=== PATIENT | female | born 1945 | race Caucasian/White ===

== ENCOUNTER → 2024-09-14 | Outpatient (CLI) | payer MEDICARE ==
[2024-09-14 10:27] VITALS: RESP 16
--- NOTE | 2024-09-14 10:49 | P.GSCN ---
History of Present Illness Consult date: 09/14/24 Reason for Consult: Invasive ductal carcinoma right breast Requesting physician: Chris Chow History of present illness: Julia is a 78-year-old female seen in consultation for Dr. Walker regarding a biopsy-proven invasive ductal carcinoma of the right breast at 10:00. She underwent a bilateral screening mammogram on 07-29-2024. This revealed calcifications in both breast. There was asymmetry seen in the cc view only in the right breast located 5 cm from the nipple. This was considered a BI-RADS 0 and right breast additional studies were recommended. A right breast ultrasound and diagnostic mammogram were performed on 08-10-2024. The diagnostic mammogram revealed an area of architectural distortion measuring 3.5 cm in the cc view only. U;traspund was done of this area which revealed the lesion at 9:00 in the right breast which was 0.3 x 0.3 cm in addition to a 1.3 x 1 cm hypoechoic mass and a second lesion in the right breast at 10:00 3 cm from the nipple which revealed a 1 x 1.1 cm ill-defined mass. 2 site biopsy of the right breast was recommended. She underwent a right breast biopsy at the 10:00 area which revealed an invasive ductal carcinoma and at the 9:00 area which revealed benign breast parenchyma with stromal fibrosis. The 10:00 was ER/IN positive HER2 negative grade 1. She did not feel anything in her breast prior to the mammogram this was a routine study. She has had a benign left breast biopsy done in the past. He is not complaining of any nipple discharge or skin changes. Patient had genetic testing Uses norco TID for back pain She recently told she had some cardiac disease scheduled for a cath/stint tomorrow She has not had any recent trauma or infection in the breast. Caffeine: 1 cup/day nicotine: none chocolate: none BCP: 3 years hormones: bioidentical > 10 years; pellet in now most recent place 1 month ago Family History: daughter: bilateral mastectomy in 30's did not have genetic testing brother: acute leukemia, bladder cancer father: lung cancer paternal aunt: colon cancer Hormonal History: menarche: 15 , breast fed: no, age at first 20 menopause: hysterectomy in her 30's left ovaries and then removed in her 40's no cancer Surgical History: shoulder surgery knee surgery hysterectomy oophrectomy bilat carpel tunnel spinal surgery cervical spine surgery (sees oain managment and has rhizomes) Medical History: cardiac disease situs inversus cervical spine disease lower back pain headaches nausea frequent mitral valve prolapse Social History: nicotine: none alcohol: none drugs: norco for back pain, takes it TID Review of Systems - Constitutional Reports sweats - EENT EENT Comment(s): bilateral cataract surgery Eyes: bilateral blurred vision, bilateral pain Ears: deny: decreased hearing, tinnitus Ears, nose, mouth and throat: Reports dysphagia - Breasts bilateral: as per HPI - Cardiovascular Reports as per HPI - Respiratory Reports cough - Gastrointestinal Reports as per HPI, Reports constipation - Genitourinary Genitourinary Comment(s): bladder suspension Genitourinary: Reports as per HPI Menstruation: Reports post hysterectomy - Musculoskeletal Reports as per HPI - Integumentary Reports pruritus, Reports rash - Neurological Reports headaches, Denies syncope - Psychiatric Reports anxiety, Reports depression - Endocrine Reports fatigue - Hematologic/Lymphatic Reports as per HPI - Allergic/Immunologic Reports as per HPI Surgical - Exam - General moderate distress - Eyes normal ocular movement - Neck trachea midline - Respiratory normal respiratory effort, clear to auscultation - Cardiovascular Rhythm: regular Heart Sounds: normal: S1, S2 - Abdomen Abdomen: soft, non tender, no guarding, no rigid, no rebound - Integumentary normal turgor - Musculoskeletal normal gait - Psychiatric oriented to time, oriented to person, oriented to place, speech is normal, memory intact Breast Exam: bra 38C inspection: Bilateral grade 3 ptosis Palpation: Right breast: Multi positional exam well-healed area from recent core biopsy no evidence of hematoma or infection, dominant masses or nodules of concern Right axilla: No adenopathy of concern Left breast: Multi positional exam no dominant masses or nodules of concern Left axilla: No adenopathy of concern Results Mammogram and ultrasound personally reviewed, lesion 10:00 area of the right breast Pathology right breast 10:00 invasive ductal carcinoma grade 1 ER/IN positive HER2 negative Assessment and Plan Assessment: Impression: Stage I invasive ductal carcinoma right breast Coronary artery disease Cervical spine disease Plan: Patient is going to have a cardiac evaluation tomorrow with stent placement Presentation of case at tumor board Follow-up after cardiac evaluation, Dr. Pozo CC: Dr. Chow
== END ==
LOC: WWCWWP 09:55
PROVIDERS: ATTEND Surgery
DX: C50.911 Malignant neoplasm of unspecified site of right female breast (principal); I25.10 Atherosclerotic heart disease of native coronary artery without angina pectoris; M50.90 Cervical disc disorder, unspecified, unspecified cervical region

== ENCOUNTER → 2024-11-02 | Outpatient (CLI) | payer MEDICARE ==
--- NOTE | 2024-11-10 09:32 | BMR ---
EXAM DATE: 11/02/2024 EXAM DESCRIPTION: MRI-Breast Bilat (W/WO Contrast) INDICATION: Screening MRI>20% lifetime risk for malignancy presenting for high risk surveillance COMPARISON: Comparison is made with relevant prior imaging in PACS. CONTRAST: 6.0 cc of Gadavist TECHNIQUE: Multiplanar MRI imaging of both breasts was performed with a dedicated breast coil, before and after intravenous administration of gadolinium contrast, using the standard breast mass protocol. Computer-aided detection was used to aid in interpretation. FINDINGS: General breast composition: There are scattered areas of fibroglandular tissue Background parenchymal enhancement: Moderate FINDINGS: Right Breast: Review of the dynamic contrast-enhanced series shows irregular enhancing mass in the upper central breast with biopsy clip marker measuring 0.9 x 0.7 x 0.9 cm (505:344, 601:141). There is a biopsy clip marker with associated small hematoma in the lower outer breast at mid depth. No additional rapidly enhancing masses or suspicious enhancement patterns. No lymphadenopathy. Left Breast: Review of the dynamic contrast-enhanced series shows no rapidly enhancing masses, suspicious enhancement patterns or other abnormalities. The T2 weighted series shows no abnormality. IMPRESSION: Right Breast: BI-RADS Category6- Known biopsy proven malignancy 1. 0.9 cm irregular mass in the upper central breast at the site of known malignancy. No additional enhancing sites of malignancy. 2. No lymphadenopathy. Recommendation: Surgical oncologic evaluation. Left Breast: BI-RADS Category 1- Negative No MRI evidence of malignancy. Recommendation: MRI screening in 1 year OVERALL ASSESSMENT -- BI-RADS 6 MTDD
== END | disposition home or self-care (01) ==
LOC: RADMRIMAIN 06:45
PROVIDERS: ATTEND Surgery
DX: C50.411 Malignant neoplasm of upper-outer quadrant of right female breast (principal)
CPT/HCPCS: C8908; A9585; 77049

== ENCOUNTER → 2025-01-05 | Outpatient (CLI) | payer MEDICARE ==
--- NOTE | 2025-01-06 06:49 | BD ---
EXAMINATION TYPE: Axial Bone Density DATE OF EXAM: 01/05/2025 CLINICAL HISTORY: 79 years old Female. ICD-10 CODE: M81.0 OSTEO , Additional History: Height: 63 in Weight: 134 lbs FRAX RISK QUESTIONS: Secondary Osteoporosis: 3. Menopause before 45: partial hysterectomy age 33 EXAM MEASUREMENTS: Bone mineral densitometry was performed using the [employer] System. Bone mineral density as measured about the Lumbar spine is: ----- L1-L4(G/cm2): 1.129 T Score Values are as follows: ----- L1: -1.2 ----- L2: -1.3 ----- L3: -0.2 ----- L4: 0.5 ----- L1-L4: -0.4 Z Score Values are as follows: ----- L1: 0.7 ----- L2: 0.7 ----- L3: 1.8 ----- L4: 2.5 ----- L1-L4: 1.5 Bone mineral density baseline Bone mineral density about the R hip (g/cm2): 0.880 Bone mineral density about the L hip (g/cm2): 0.851 T Score values are as follows: -----R Neck: -1.9 -----L Neck: -2.2 -----R Total: -1.0 -----L Total: -1.2 Z Score values are as follows: -----R Neck: 0.2 -----L Neck: 0.0 -----R Total: 1.0 -----L Total: 0.8 Bone mineral density baseline FRAX%s: The graph provided illustrates a 15.9% chance for a major osteoporotic fx and a 5.0% chance f or the hips probability for fx in 10 years time. IMPRESSION: Osteopenia (T Score between -2.5 and -1). There is slightly increased risk of fracture and the patient may be considered for treatment. Re-Screen 2-5 years. NOTE: T-SCORE=SD OF THE YOUNG ADULT MEAN. [facility], Workstation: [facility] SYSTEMbunkersofaUNIVERSITY OF [facility], 01/06/2025 6:47 AM
== END | disposition home or self-care (01) ==
LOC: RADBDWWP 16:40
PROVIDERS: ATTEND Internal Medicine
DX: M81.0 Age-related osteoporosis without current pathological fracture (principal); C50.411 Malignant neoplasm of upper-outer quadrant of right female breast; I10 Essential (primary) hypertension; M85.89 Other specified disorders of bone density and structure, multiple sites; Z78.0 Asymptomatic menopausal state; R73.03 Prediabetes; Z86.711 Personal history of pulmonary embolism
CPT/HCPCS: 77080

== ENCOUNTER → 2025-01-12 | Outpatient (CLI) | payer MEDICARE ==
[2025-01-12 09:26] VITALS: BP 137/71; PULSE 73; RESP 17; TEMP 97.1
--- NOTE | 2025-01-12 09:42 | P.BCPN ---
Subjective Progress Note Date: 01/12/25 Principal diagnosis: right breast invasive ductal cancer [id number]- 01-12-25 History of Present Illness Consult date: 09/14/24 Reason for Consult: Invasive ductal carcinoma right breast Requesting physician: Chris Chow History of present illness: Julia is a 78-year-old female seen in consultation for Dr. Walker regarding a biopsy-proven invasive ductal carcinoma of the right breast at 10:00. She underwent a bilateral screening mammogram on 07-29-2024. This revealed calcifications in both breast. There was asymmetry seen in the cc view only in the right breast located 5 cm from the nipple. This was considered a BI-RADS 0 and right breast additional studies were recommended. A right breast ultrasound and diagnostic mammogram were performed on 08-10-2024. The diagnostic mammogram revealed an area of architectural distortion measuring 3.5 cm in the cc view only. U;traspund was done of this area which revealed the lesion at 9:00 in the right breast which was 0.3 x 0.3 cm in addition to a 1.3 x 1 cm hypoechoic mass and a second lesion in the right breast at 10:00 3 cm from the nipple which revealed a 1 x 1.1 cm ill-defined mass. 2 site biopsy of the right breast was recommended. She underwent a right breast biopsy at the 10:00 area which revealed an invasive ductal carcinoma and at the 9:00 area which revealed benign breast parenchyma with stromal fibrosis. The 10:00 was ER/HI positive HER2 negative grade 1. She did not feel anything in her breast prior to the mammogram this was a routine study. She has had a benign left breast biopsy done in the past. He is not complaining of any nipple discharge or skin changes. Patient has not had genetic testing Uses norco TID for back pain She recently told she had some cardiac disease scheduled for a cath/stint tomorrow She has not had any recent trauma or infection in the breast. Patients case was presented at tumor board on 10 04 24. Secondary to the patient needing cardiac stents placed her surgery is being rescheduled. The recommendation is for breast MRI at this time. She has an appointment with medical oncology on October 26 and will be most likely started on an aromatase inhibitor. She will follow-up here in 2 months. If she has any questions or concerns before she will call us sooner. I have called Dr. Barreto from cardiology [phone] and left a message with him. I have also spoken directly with the patient. Addendum entered and electronically signed by Yareli Josue MD 10/04/24 15:29: Patient case presented at tumor board on 10 04 24. Recommendation is to have her heart disease treated first and to be placed on an aromatase inhibitor in the interim. The stop was that it would be at least 3 months from her last stent placement before she would have surgical intervention. At that time most likely needle localization and lumpectomy. Additionally an MRI of the breast is recommended. And an appointment with medical oncology at this time. I have attempted to call the patient and she did not answer. I have also called Dr. Kan her data warehouse specialist and waiting a return call from him. Addendum entered and electronically signed by Yareli Josue MD 09/15/24 08:23: follow up after tumor board MRI done on 11-02-24 shows known lesion in the right breast, no other lesions in either breast. She had cardiac stints placed in August 2024. She was on aspirin and plavix. She was started on anastrazole until she could be cleared by cardiology for surgery. note medical oncology 10-26-24 reviewed Caffeine: 1 cup/day nicotine: none chocolate: none BCP: 3 years hormones: bioidentical > 10 years; pellet in now most recent place 1 month ago Family History: daughter: bilateral mastectomy in 30's did not have genetic testing brother: acute leukemia, bladder cancer father: lung cancer paternal aunt: colon cancer Hormonal History: menarche: 15 , breast fed: no, age at first 20 menopause: hysterectomy in her 30's left ovaries and then removed in her 40's no cancer Surgical History: shoulder surgery knee surgery hysterectomy oophrectomy bilat carpel tunnel spinal surgery cervical spine surgery (sees pain managment and has had rhizotomy) Medical History: cardiac disease situs inversus cervical spine disease lower back pain headaches nausea frequent mitral valve prolapse Social History: nicotine: none alcohol: none drugs: norco for back pain, takes it TID Review of Systems - Constitutional Reports sweats - EENT EENT Comment(s): bilateral cataract surgery Eyes: bilateral blurred vision, bilateral pain Ears: deny: decreased hearing, tinnitus Ears, nose, mouth and throat: Reports dysphagia - Breasts bilateral: as per HPI - Cardiovascular Reports as per HPI - Respiratory Reports cough - Gastrointestinal Reports as per HPI, Reports constipation - Genitourinary Genitourinary Comment(s): bladder suspension Genitourinary: Reports as per HPI Menstruation: Reports post hysterectomy - Musculoskeletal Reports as per HPI - Integumentary Reports pruritus, Reports rash - Neurological Reports headaches, Denies syncope - Psychiatric Reports anxiety, Reports depression - Endocrine Reports fatigue - Hematologic/Lymphatic Reports as per HPI - Allergic/Immunologic Reports as per HPI Objective - Constitutional General appearance: Present: cooperative - EENT Eyes: Present: EOMI ENT: Present: hearing grossly normal - Neck Neck: Present: normal ROM - Breast Breast-Narrative: Breast Exam: bra 38C inspection: Bilateral grade 3 ptosis Palpation: Right breast: Multi positional exam well-healed area from recent core biopsy no evidence of hematoma or infection, dominant masses or nodules of concern Right axilla: No adenopathy of concern Left breast: Multi positional exam no dominant masses or nodules of concern Left axilla: No adenopathy of concern Ptosis: Grade 3: Right Breast Ptosis, Left Breast Ptosis Breast: both: normal (fibrocystic changes, biopsy changes rightg breast) Right Breast Palpation (Multi-positional): Fibrocystic Changes Left Breast Palpation (Multi-positional): Fibrocystic Changes Right Axilla Palpation: No adenopathy of concern Left Axilla Palpation: No adenopathy of concern - Respiratory Respiratory: bilateral: CTA - Cardiovascular Rhythm: regular Heart sounds: normal: S1, S2 - Gastrointestinal General gastrointestinal: Present: soft - Integumentary Integumentary: Present: normal turgor - Musculoskeletal Musculoskeletal: Present: gait normal - Psychiatric Psychiatric: Present: A&O x's 3, appropriate affect, intact judgment & insight Assessment and Plan Plan: Mammogram and ultrasound personally reviewed, lesion 10:00 area of the right breast Pathology right breast 10:00 invasive ductal carcinoma grade 1 ER/HI positive HER2 negative Assessment and Plan Assessment: Impression: Stage I invasive ductal carcinoma right breast Coronary artery disease, recent stint placement Cervical spine disease Plan: Cardiac clearance from Dr. Pozo ( stop plavix as per Dr. Pozo) Clearance from Dr. Walker Right breast needle localization lumpectomy, possible oncoplastic tissue transfer Risk and benefits of the procedure discussed with the patient and her . Risk include but are not limited to bleeding, infection, reaction to the a nesthetic. If there were to be positive margins then further tissue acquisition may be necessary. They understand and wish to proceed. CC: Dr. Chow Prep Education Provided - Preoperative Education Given Pre-Op Kit Given Date: 01/12/25 - Functional Assessment Performed?: Yes (arm abduction passed) - Smoking Cessation Education Provided?: No (non-smoker)
== END ==
LOC: WWCWWP 09:14
PROVIDERS: ATTEND Surgery
DX: C50.911 Malignant neoplasm of unspecified site of right female breast (principal); I25.10 Atherosclerotic heart disease of native coronary artery without angina pectoris; M48.9 Spondylopathy, unspecified; Z95.5 Presence of coronary angioplasty implant and graft